=== PATIENT | female | born 1950 | race Caucasian/White ===

== ENCOUNTER 2016-10-27 16:23 | Outpatient (CLI) | payer OTHER ==
--- NOTE | 2016-10-27 17:06 | DIAGNOSTIC IMAGING REPORT ---
PROCEDURE: US CHEST INDICATION: RIB PAIN ON LT SIDE TECHNIQUE: Damon scale and color Doppler sonographic images of the ribs were obtained COMPARISON: None. FINDINGS: Sonographically normal tissue. No suspicious cyst, solid mass, hypervascularity, or abnormal shadowing. IMPRESSION: 1. Normal ultrasound in the patient's area of pain.
== END 2016-10-27 23:00 | disposition home or self-care (01) ==
LOC: US SRH 16:23
DX: R07.81 Pleurodynia (principal)